=== PATIENT | male | born 1965 | race Caucasian/White ===

== ENCOUNTER 2023-11-08 18:50 | Outpatient (CLI) | payer OTHER, SELFPAY ==
[2023-11-08 19:06] LABS: Basophils # 0.1 K/mm3 (0-0.2); Basophils % 1.3 % (0.1-2.0); Eosinophils # 0.2 K/mm3 (0.0-0.4); Hematocrit 53.2 % (42.0-52.0); Hemoglobin 16.8 g/dL (14.1-18.0); Lymphocytes # 3.2 K/mm3 (0.7-4.5); Lymphocytes % 33.5 % (10-50); Mean Corpuscular HGB Conc 31.6 g/dL (31.8-35.4); Mean Corpuscular Hemoglobin 30.6 pg (27.0-31.2); Mean Corpuscular Volume 97.1 fl (80-94); Mean Platelet Volume 9.1 fl (7.4-10.4); Monocytes # 0.7 K/mm3 (0.1-1.0); Monocytes % 7.7 % (1.7-9.3); Neutrophils # 5.3 K/mm3 (1.8-7.8); Neutrophils % 55.6 % (37.0-80.0); Platelet Count 317 K/mm3 (142-424); Red Blood Count 5.48 M/mm3 (4.60-6.20); Red Cell Distribution Width 13.3 % (11.5-17.5); White Blood Count 9.5 K/mm3 (4.8-10.8)
[2023-11-08 19:22] LABS: Alanine Aminotransferase 32 U/L (12-78); Albumin Level 4.4 g/dl (3.5-5.0); Albumin/Globulin Ratio 1.5 (1.1-1.8); Alkaline Phosphatase 100 U/L (38-126); Anion Gap 12.2 mEq/L (5-15); Aspartate Amino Transferase 27 U/L (17-59); Bilirubin,Total 0.7 mg/dl (0.2-1.3); Blood Urea Nitrogen 17 mg/dl (9-20); Calcium 9.7 mg/dl (8.4-10.2); Carbon Dioxide 28 mmol/L (22.0-30.0); Chloride 103 mmol/L (98-107); Chol/HDL Ratio 4.5 (1-3.5); Cholesterol 197 mg/dl (140-200); Estimated Glomerular Filt Rate 100 ml/min (>60); GFR (African American) 121 ML/MIN (>60); Globulin 2.9 g/dL (1.3-3.2); Glucose 223 mg/dl (74-100); HDL Cholesterol 44 mg/dl (40-60); Potassium 4.2 mmoL/L (3.5-5.1); Sodium 139 mmol/L (136-145); Total Protein,Serum 7.3 g/dl (6.3-8.2); Triglycerides 134 mg/dl (30-150); VLDL Cholesterol 27 mg/dL (0-40)
[2023-11-08 19:33] LABS: Direct LDL Cholesterol 114.94 mg/dL (100-129); Hemoglobin A1C 10.3 % (4.0-6.0)
[2023-11-08 19:54] LABS: Prostate Specific Ag Screen 0.7 ng/ml (0.0-4.0); Thyroid Stimulating Hormone 1.86 uIU/mL (0.465-4.68)
[2023-11-16 02:37] LABS: Testosterone, Total, LC/MS 290 ng/dL (.)
== END 2023-11-08 23:59 ==
LOC: LAB.DROPOF 18:50
PROVIDERS: PCP Nurse Practitioner Family; Visit Provider Nurse Practitioner Family
DX: Z76.89 Persons encountering health services in other specified circumstances (principal); E11.9 Type 2 diabetes mellitus without complications; E66.01 Morbid (severe) obesity due to excess calories; Z68.42 Body mass index [BMI] 45.0-49.9, adult; Z79.4 Long term (current) use of insulin; Z79.899 Other long term (current) drug therapy; Z12.5 Encounter for screening for malignant neoplasm of prostate
CPT/HCPCS: 80053; 80061; 83036; 84403; 84443; 85025; G0103

== ENCOUNTER 2024-01-28 10:42 | Day surgery (SDC) | payer OTHER, SELFPAY ==
[2024-01-28] MEDS: LACTATED RINGERS 1000ML 1,000 ML 25 ML IV (10:52)
[2024-01-28 11:00] VITALS: BP 153/80; PULSE 63; RESP 18; TEMP 36.3; O2SAT 95; BMI 43.0
--- NOTE | 2024-01-28 11:13 | EXP.ANES.CKL ---
[facility] Disclaimer: The information contained in this section may have been updated after the patient was seen, as this information can be updated by other users. Surgical History Hx of hernia repair Family History Other Cancer Diabetes Heart attack Hypertension Kidney disease Social History Smoking Status: Never smoker alcohol intake: current substance use type: denies use current occupational status: employed Travel in the last 8 weeks: Inside the [place] [facility] Anesthesia Checklist Patient Identification Patient Identification: Arm Band and Verbal (Name & ) Structural Data Admitted From: Home Planned Operative Procedure/s: Colonoscopy Consent for Planned Operative Procedure(s) Verified: Yes Verified Documents: Surgical Consent and History and Physical NPO Status Verified Time NPO: 00:00 Additional verifications Anesthesia Reactions: No Airway Assessment Mallampati Score:: Class IV C-Spine Mobility Assessed: Yes TMJ Mobility Assessed: Yes Dentition: Good Dentition Neurological Assessment Level of Consciousness: Awake Hx Seizures: No Numbness or tingling in extremities: No Anesthesia Plan Anesthesia Risk discussed: Yes Anesthesia Plan: Verified ASA Class: III Anesthesia Type: MAC
--- NOTE | 2024-01-28 11:15 | P.PCN_ITS ---
Procedure: Date: 01/28/24 Patient Date of :: 1965 Procedure Performed:: Colonoscopy with polypectomy Indications:: Screening Performing Provider:: Rob Hairston MD Referring Provider:: . Sedation:: Monitored anesthesia care Procedure:: After informed consent was obtained the patient was taken to the endoscopy suite. Sedation ensued after the patient was transferred to the left lateral decubitus position. Pulse, blood pressure, and oxygen saturation were monitored throughout the procedure. Digital rectal exam revealed no significant abnormality. The colonoscope was placed in position. The entire colon was evaluated. The colonoscope was carefully removed and the patient was transferred to recovery in stable condition. Please see findings and specimens below for detail. Findings:: Bowel preparation poor Scattered diverticulosis Moderate spasticity/lack of relaxation Moderate tortuosity Polyps (see specimens) Specimens:: Distal right colon polyp (cold snare) Polyp at 20 cm (cold snare) [not retrieved secondary to stool burden] Recommendations:: Timing of repeat colonoscopy is pending pathology but likely be around 6 months with extended bowel preparation. If the patient has constipation or other gastrointestinal complaints a [facility] roenterology consultation will be ordered and colonoscopy will be deferred to the GI service. Complications:: No immediate with the exception of limited bowel preparation Estimated blood obtained (mL): 1 Colonoscopy Component Colonoscopy Component Was a colonoscopy performed during today's procedure?: Yes Recommended follow up colonoscopy of at least 10 years?: No If no, follow up colonoscopy recommended in ___ years?: (See above) Reason for not recommending >/= 10 yr follow-up interval?: (See above)
[2024-01-28 11:16] VITALS: O2SAT 95
[2024-01-28 11:49] VITALS: BP 152/79; PULSE 80; RESP 18; TEMP 37.2; O2SAT 95
[2024-01-28 11:59] VITALS: BP 132/69; PULSE 80; RESP 16; O2SAT 95
[2024-01-28 12:09] VITALS: BP 146/91; PULSE 78; RESP 16; O2SAT 95
[2024-01-28 12:19] VITALS: BP 149/91; PULSE 68; RESP 16; O2SAT 96
[2024-01-29 07:03] LABS: POC Glucose,Bedside 178 (70-110)
== END 2024-01-28 12:19 | disposition home or self-care (01) ==
LOC: OUTP 10:43
PROVIDERS: PCP Nurse Practitioner Family; Visit Provider Surgery
PROC: 0DJD8ZZ Inspection of Lower Intestinal Tract, Via Natural or Artificial Opening Endoscopic (ICD-10-PCS; CPT 45385; principal; 2024-01-28 12:00)
DX: Z12.11 Encounter for screening for malignant neoplasm of colon (principal); K63.5 Polyp of colon
CPT/HCPCS: 45385; 82962; J7120